=== PATIENT | female | born 1975 | race Two or more races ===

== ENCOUNTER 2024-02-09 13:38 | Emergency (ER) | payer OTHER ==
[~2024-02-09] VITALS: Ht 152.4 cm; Wt 86.2 kg
[2024-02-09] MEDS ORDERED: SYNTHROID125 MCG PO (14:02)
[2024-02-09] MEDS ORDERED: LEXAPRO5 MG (14:02)
[2024-02-09] MEDS ORDERED: CLARITIN10 M1 (14:02)
[2024-02-09] MEDS ORDERED: 0.9 % SODIUM CHLORIDE 1,000 ML IV ONE (16:15)
[2024-02-09] MEDS ORDERED: MEPERIDINE HCL/PF 25 MG/ML VIAL IV ONE (16:15)
[2024-02-09] MEDS ORDERED: ONDANSETRON HCL 2 MG/ML VIAL IV ONE (16:15)
[2024-02-09] MEDS ORDERED: FAMOtidine 10 MG/ML (4ML VIAL) IV ONE (16:15)
[2024-02-09] MEDS ORDERED: FAMOTIDINE/PF 20 MG/2 ML VIAL ONE (16:18)
[2024-02-09] MEDS ORDERED: ONDANSETRON HCL 2 MG/ML VIAL ONE (16:18)
[2024-02-09 16:28] LABS: HEMATOCRIT 33.4 % (36.0-45.00); HEMOGLOBIN 11.3 g/dL (12.0-15.00); MEAN CELL VOLUME 81.7 fL (80.00-100.00); MEAN CORPUSCULAR HEMOGLOBIN 27.7 pg (27.00-32.0); PLATELET COUNT 427 K/uL (150-450); RED BLOOD COUNT 4.09 M/uL (4.00-6.00); RED CELL DISTRIBUTION WIDTH 15.8 % (11.5-14.5)
[2024-02-09 16:51] LABS: ALBUMIN 3.5 gm/dL (3.4-5.0); ALKALINE PHOSPHATASE 101 U/L (50-136); ALT/SGPT 46 U/L (12-78); AMYLASE 53 U/L (25-115); ANION GAP 10 (10.0-20.0); AST/SGOT 28 U/L (15-37); BILIRUBIN TOTAL 0.27 mg/dL (0.3-1.2); BLOOD UREA NITROGEN 12 mg/dL (7-18); BUN CREA RATIO 17 (7.0-25.0); CALCIUM 9.1 mg/dL (8.5-10.1); CARBON DIOXIDE 28 mEq/L (21-32); CHLORIDE 104 mmol/L (98-107); CREATININE SERUM 0.71 mg/dL (0.55-1.02); GFR 88.24; GLOBULINA 4.6 G/DL (2.4-3.5); GLUCOSE FASTING 116 mg/dL (65-100); LIPASE 29 U/L (13-75); OSMOLALITY SERUM 276 MOSM/KG (275-295); POTASSIUM 3.75 mEq/L (3.5-5.1); SODIUM 138 mmol/L (136-145); TOTAL PROTEIN 8.1 gm/dL (6.4-8.2)
[2024-02-09 17:13] LABS: PH,URINE 6.5 (5.0-8.0); URINE APPEARANCE Clear; URINE BILIRRUBIN Negative (NEGATIVE); URINE BLOOD Negative; URINE COLOR Yellow; URINE GLUCOSE Negative (NEGATIVE); URINE KETONE Negative (NEGATIVE); URINE LEUKOCYTE Negative; URINE NITRATE Negative; URINE PROTEIN Negative (NEGATIVE); URINE UROBILINOGEN 0.2 E.U./dl
[2024-02-09 17:14] LABS: HCG QUANTITATIVE < 1 mUI/mL (1-3)
[2024-02-09 17:16] LABS: URINE BACTERIA 1348.1 uL (0.0-1933); URINE EPITHELIAL CELLS 41.7 uL (0.0-38.8); URINE RBC 65.3 uL (0.0-20.8); URINE WBC 16.3 uL (0.0-23.2)
[2024-02-09] MEDS ORDERED: PEPCID AC20 MG PO (19:51)
== END 2024-02-09 20:18 | disposition home or self-care (01) ==
LOC: ER 13:40
PROVIDERS: General Practice
DX: R19.7 Diarrhea, unspecified (principal); E03.8 Other specified hypothyroidism; Z88.0 Allergy status to penicillin; Z88.5 Allergy status to narcotic agent; Z88.6 Allergy status to analgesic agent
CPT/HCPCS: 36415; 74177; Q9965